=== PATIENT | male | born 1945 | race Caucasian/White ===

== ENCOUNTER 2018-03-21 12:11 | Emergency (ER) | payer OTHER ==
[~2018-03-21] VITALS: Ht 165.1 cm; Wt 85.8 kg
[~2018-03-21 12:11] MED LIST: COZ50 PO; DOXA8TAB PO; GLIM2TAB PO; METF1TAB PO; METF500T PO; OMEP40EC1 PO; SIMV40TA1 PO; [UNRECOGNIZED DRUG - CODE] PO
[2018-03-21 12:16] VITALS: BP 132/66
--- NOTE | 2018-03-21 12:21 | NUR ---
PT AMBULATES TO BED 3, REPORT GIVEN TO ANDREZ SIMON
--- NOTE | 2018-03-21 12:22 | NUR ---
73/M BIB SELF C/O PRODUCTIVE GREEN COUGH X 2 WKS WITH SORE THROAT, BL ITCHY EYES AND GENERALYZED WEAKNESS .DENIES N/V/D; SKIN IS PINK/WARM/DRY; AAOX4 WITH EVEN AND STEADY GAIT; LUNGS CLEAR BL. PT DENIES ANY FEVER OR CHEST PAIN AT THIS TIME; PATIENT STATES THROAT PAIN OF 8/10 AT THIS TIME. PATIENT POSITIONED FOR COMFORT; HOB ELEVATED; BEDRAILS UP X2; BED DOWN. ER MD MADE AWARE OF PT STATUS.
--- NOTE | 2018-03-21 12:29 | NUR ---
DR MUÑIZ EVALUATING AT BEDSIDE
--- NOTE | 2018-03-21 12:34 | NUR ---
PT TAKEN TO XRAY IN WHEELCHAIR
[2018-03-21 13:15] VITALS: BP 123/71
--- NOTE | 2018-03-21 13:15 | NUR ---
Patient discharged with v/s stable. Written and verbal after care instructions given and explained. Patient alert, oriented and verbalized understanding of instructions. Ambulatory with steady gait. All questions addressed prior to discharge. ID band removed. Patient advised to follow up with PMD. Rx of AZITHROMYCIN, PREDNISONE, SULFACETAMIDE & ALBUTEROL given. Patient educated on indication of medication including possible reaction and side effects. Opportunity to ask questions provided and answered.
== END 2018-03-21 13:15 | disposition home or self-care (01) ==
LOC: MED 12:11
DX: J40 Bronchitis, not specified as acute or chronic (principal); H10.9 Unspecified conjunctivitis; E11.9 Type 2 diabetes mellitus without complications; K21.9 Gastro-esophageal reflux disease without esophagitis; I10 Essential (primary) hypertension; Z79.899 Other long term (current) drug therapy
CPT/HCPCS: 71046; 99284

== ENCOUNTER 2021-12-04 10:51 | Emergency (ER) | payer OTHER ==
[~2021-12-04] VITALS: Ht 167.6 cm; Wt 77.1 kg
[~2021-12-04 10:51] MED LIST changes: -COZ50 PO; +LOSA50TA57 PO; -OMEP40EC1 PO; +OMEP40EC24 PO
[2021-12-04 10:55] VITALS: BP 118/61
--- NOTE | 2021-12-04 10:55 | NUR ---
76 Y/O MALE C/O URINARY PROBLEMS SINCE LAST WEEK. STATES BLOOD IN URINE. DENIES ANY PAIN MEDHX: DM, HEMORRHOIDS NKA
[2021-12-04] MEDS ORDERED: PHEN1SUP5 RC (12:05)
[2021-12-04 12:17] VITALS: BP 118/61
--- NOTE | 2021-12-04 12:17 | NUR ---
Patient discharged with v/s stable. Written and verbal after care instructions given and explained. Patient alert, oriented and verbalized understanding of instructions. Ambulatory with steady gait. All questions addressed prior to discharge. ID band removed. Patient advised to follow up with PMD. Rx of PREPARATION H SUPPOSITORY given. Patient educated on indication of medication including possible reaction and side effects. Opportunity to ask questions provided and answered.
== END 2021-12-04 12:17 | disposition home or self-care (01) ==
LOC: MED 10:51
DX: K64.8 Other hemorrhoids (principal); E11.9 Type 2 diabetes mellitus without complications; K21.9 Gastro-esophageal reflux disease without esophagitis; I10 Essential (primary) hypertension; Z79.899 Other long term (current) drug therapy
CPT/HCPCS: 81002; 99283

== ENCOUNTER 2022-10-15 20:43 | Inpatient (IN) | payer OTHER ==
[~2022-10-15] VITALS: Ht 163.8 cm; Wt 80.7 kg
[~2022-10-15 20:43] MED LIST changes: +METF-346 PO; -METF1TAB PO; -METF500T PO; -OMEP40EC24 PO; +PHEN1SUP5 RC
[2022-10-15 20:47] VITALS: BP 125/60
--- NOTE | 2022-10-15 20:52 | NUR ---
PT AMBULATED TO THE BATHROOM FOR URINE COLLECTION
--- NOTE | 2022-10-15 20:54 | NUR ---
PT TO LOBBY
[2022-10-15 21:21] LABS: APPEARANCE,URINE CLEAR (CLEAR); BILIRUBIN,URINE NEGATIVE (NEGATIVE); BLOOD, URINE NEGATIVE (NEGATIVE); COLOR,URINE YELLOW (YELLOW); LEUKOCYTE ESTERASE ,URINE NEGATIVE (NEGATIVE); NITRITE, URINE NEGATIVE (NEGATIVE); UGLUCOSE 3+ (NEGATIVE)
--- NOTE | 2022-10-15 21:53 | NUR ---
PT AMBULATED TO BED 1
--- NOTE | 2022-10-15 21:59 | NUR ---
PATIENT PRESENTS TO ED WITH GENERAL ABD PAIN X1 DAY. ABD ROUND, FIRM. PT STATES PAIN STARTED WITH MORNING, VOMITED X2 TODAY, LAST BM YESTERDAY MORNING. DENIES DIARRHEA. PT STATES HE WAS ADMITTED APPROX 3 MONTHS AGO FOR SIMILAR PAIN, STATES HE HAD "TWISTED INTESTINE". NO SURGICAL INTERVENTION DONE PER PT. SKIN IS PINK/WARM/DRY; AAOX4 WITH EVEN AND STEADY GAIT; LUNGS CLEAR BL; PT DENIES ANY FEVER, CP, SOB, OR COUGH AT THIS TIME; PATIENT STATES PAIN OF 7/10 AT THIS TIME; VSS; PATIENT POSITIONED FOR COMFORT; HOB ELEVATED; BEDRAILS UP X2; BED DOWN. ER MD MADE AWARE OF PT STATUS.
--- NOTE | 2022-10-15 22:07 | NUR ---
DR. CARRIZALES AT BEDSIDE FOR MSE HX Partial small bowel obstruction Umbilical hernia Diabetes mellitus 2 Hypertension GERD
[2022-10-15 22:15] LABS: BASOPHILS % (AUTO) 0.2 % (0.0-2.0); HEMATOCRIT 41.3 % (36-52); HEMOGLOBIN 13.3 g/dL (12.0-18.0); LYMPHOCYTES # (AUTO) 0.7 K/uL (2.0-11.5); LYMPHOCYTES % (AUTO) 6.1 % (20.5-51.1); MEAN CORPUSCULAR HEMOGLOBIN 28 pg (27-31); MEAN CORPUSCULAR HGB CONC 32 g/dL (33-37); MEAN CORPUSCULAR VOLUME 86.4 fL (80-94); MONOCYTES # (AUTO) 0.3 K/uL (0.8-1.0); MONOCYTES % (AUTO) 2.8 % (1.7-9.3); NEUTROPHILS # (AUTO) 10.8 K/uL (1.8-7.7); NEUTROPHILS % (AUTO) 90.9 % (42.2-75.2); PLATELET COUNT (AUTO) 258 K/uL (140-450); RED BLOOD CELL COUNT(AUTO) 4.78 MIL/uL (4.20-6.10); WHITE BLOOD COUNT (AUTO) 11.9 K/uL (4.8-10.8)
[2022-10-15] MEDS ORDERED: MORPHINE SULFATE 4 MG/ML SYR IVP ONE (22:15)
[2022-10-15] MEDS ORDERED: ONDANSETRON 4 MG/2 ML VIAL IVP ONE (22:15)
[2022-10-15] MEDS ORDERED: NACL 0.9% 1,000 ML IV ONE (22:20)
--- NOTE | 2022-10-15 22:36 | NUR ---
PT MEDICATED FOR PAIN
--- NOTE | 2022-10-15 22:43 | NUR ---
NOTIFIED DAUGHTER MARY [phone] OF ADMISSION STATUS
[2022-10-15 22:44] LABS: ALBUMIN 3.7 g/dL (3.4-5.0); ANION GAP 15.2 (8-16); ASPARTATE AMINOTRANSFERASE 13 U/L (15-37); CARBON DIOXIDE 26.9 mmol/L (21-32); CHLORIDE 103 mmol/L (98-107); CREATININE 0.7 mg/dL (0.6-1.3); GLUCOSE 203 mg/dL (74-106); LIPASE 45 U/L (73-393); POTASSIUM 5.1 mmol/L (3.5-5.1); SODIUM SERUM 140 mmol/L (136-145); TOTAL BILIRUBIN 0.5 mg/dL (0.0-1.0); UREA NITROGEN, BLOOD 21 mg/dL (7-18)
--- NOTE | 2022-10-15 22:57 | NUR ---
COVID SWAB DONE
--- NOTE | 2022-10-16 01:44 | NUR ---
REPORT GIVEN TO INJECTOR ASSEMBLER EJ
--- NOTE | 2022-10-16 02:31 | NUR ---
ROUNDED ON PT. PT STATES PAIN COMING BACK. NOTIFIED DR. HELTON
[2022-10-16] MEDS ORDERED: MORPHINE SULFATE 4 MG/ML SYR IVP ONE (02:35)
--- NOTE | 2022-10-16 02:45 | NUR ---
PT MEDICATED FOR PAIN PENDING BED ASSIGNMENT
--- NOTE | 2022-10-16 03:11 | NUR ---
EDUCATED PT ON NPO STATUS
--- NOTE | 2022-10-16 07:27 | NUR ---
Pt report given to GRICEL MAGUIRE. Transfer of care at this time.
--- NOTE | 2022-10-16 08:12 | NUR ---
Note elle in ED - 10/16/22 at 0822 by [id number] Patient will be admitted to care of DR. BUSTILLO. Admited to [facility]. Will go to [id number]. Belongings list completed. Report to ANDREZ Mabry.
[2022-10-16] MEDS: DEXT 5% /NACL 0.9% 1,000 ML IV SCH ×2 (08:50→16:50)
[2022-10-16] MEDS ORDERED: ONDANSETRON 4 MG/2 ML VIAL IM/IVP PRN (08:50)
[2022-10-16] MEDS ORDERED: guaiFENesin DM 200/20 MG-10 ML 10 ML UDC PO PRN (08:50)
[2022-10-16] MEDS ORDERED: DOCUSATE SODIUM 100 MG GELCAP PO PRN (08:50)
[2022-10-16] MEDS ORDERED: POTASSIUM CHLORIDE 10 MEQ TABER PO PRN (08:50)
[2022-10-16] MEDS ORDERED: ZOLPIDEM 5 MG TAB PO PRN (08:50)
[2022-10-16] MEDS ORDERED: HYDROcodone/APAP 7.5/325 MG 1 TAB PO PRN (08:50)
[2022-10-16] MEDS ORDERED: ACETAMINOPHEN 325 MG TAB PO PRN (08:50)
[2022-10-16] MEDS ORDERED: PANTOPRAZOLE 40 MG TABEC PO SCH (09:00)
[2022-10-16 09:05] VITALS: BP 142/65
--- NOTE | 2022-10-16 09:05 | NUR ---
PT TRANSPORTED BY ER NURSE VIA GURNEY. RECEIVED REPORT FROM ER NURSE MARIA M. PT A/A/O X4. RESPIRATIONS EVEN AND UNLABORED ON RA. NO DISTRESS NOTED. NO C/O OF PAIN. PT ATTACHED TO ELECTRICIAN POWERHOUSE. V/S TAKEN. MRSA SWAB TAKEN AND SENT TO LAB. PT ON NPO. INFORMED PT AND OBSERVATION NURSE. NPO SIGN PLACED AT THE PT'S DOOR. SKIN INTACT, WARM AND DRY TO TOUCH. IV SITE ON LAC 20G, IVF RESUMED. PT ORIENTED TO ROOM, UNIT AND ROUTINE. CALL LIGHT WITHIN REACH. SAFETY PRECAUTIONS IN PLACE.
--- NOTE | 2022-10-16 09:13 | NUR ---
PT CHECKED AND SEEN BY DR BUSTILLO.
[2022-10-16] MEDS ORDERED: PANTOPRAZOLE 40 MG INJ VIAL IVP SCH (10:09)
[2022-10-16 10:17] LABS: PROTHROMBIN TIME 10.7 secs (10.8-13.4)
[2022-10-16 10:19] LABS: AMYLASE 48 U/L (25-115); CHOL/HDL RATIO 2.3 (1-4.5); FREE T4 (FREE THYROXINE) 1.03 ng/dL (0.76-1.46); HDL CHOLESTEROL 59 mg/dL (40-60); LDL (CALC) 52 mg/dL (60-100); LIPASE 35 U/L (73-393); MAGNESIUM 1.7 mg/dL (1.8-2.4); PHOSPHORUS 3.6 mg/dL (2.5-4.9); THYROID STIMULATING HORMONE 1.67 uIU/mL (0.34-3.74); TRIGLYCERIDES 110 mg/dL (30-150)
[2022-10-16] MEDS ORDERED: INSULIN LISPRO SLIDING SCALE 100 UNITS/ML VIAL SUBQ PRN (10:35)
[2022-10-16] MEDS ORDERED: DEXTROSE 50% 50 ML SYR IVP PRN (10:35)
--- NOTE | 2022-10-16 10:38 | NUR ---
PATIENT HAS BEEN SCREENED AND CATEGORIZED MODERATE NUTRITION RISK. PATIENT WILL BE SEEN WITHIN 3-5 DAYS OF ADMISSION. REVIEWED BY KENYATTA PRIDE RD
[2022-10-16] MEDS ORDERED: MAG SULF 2000 MG/WATER PREMIX 50 ML IV SCH (10:51)
--- NOTE | 2022-10-16 11:00 | NUR ---
ADMINISTERED MAG RIDER FOR MAGNESIUM LEVEL OF 1.7. PT IN STABLE CONDITION
[2022-10-16 12:00] VITALS: BP 136/59
[2022-10-16] MEDS: BLOOD GLUCOSE MONITORING 1 DEV DEV FS SCH ×3 (12:00→20:32)
--- NOTE | 2022-10-16 12:02 | NUR ---
BLOOD SUGAR CHECK DONE. NO SLIDING SCALE INSULIN GIVEN FOR BS 137.
[2022-10-16] MEDS ORDERED: KETOROLAC 30 MG/ML VIAL IVP PRN (12:35)
[2022-10-16 16:00] VITALS: BP 133/61
--- NOTE | 2022-10-16 17:06 | NUR ---
BS CHECK 147. NO INSULIN COVERAGE PER SLIDING SCALE.
--- NOTE | 2022-10-16 19:25 | NUR ---
ENDORSED PT TO NURSE LOCKETT FOR CONTINUITY OF CARE. ALL NEEDS MET THROUGHOUT SHIFT. PT IS STABLE. Addendum: 10/16/22 at 1926 by Thong Marks LVN ENDORSED PT TO ANDREZ HARMAN. PT IS IN STABLE CONDITION.
[2022-10-16 20:00] VITALS: BP 131/61
[2022-10-17] VITALS: BP 138/64
[2022-10-17 04:00] VITALS: BP 130/62
[2022-10-17] MEDS: BLOOD GLUCOSE MONITORING 1 DEV DEV FS SCH ×4 (07:14→21:00)
--- NOTE | 2022-10-17 07:28 | NUR ---
RECEIVED PT FROM ANDREZ HARMAN FOR CONTINUITY OF CARE. PT AWAKE, IN BED. A&O4, ABLE TO MAKE NEEDS KNOWN. RESPIRATIONS EVEN AND UNLABORED ON RA. NO DISTRESS NOTED. NO COMPLAINTS OF PAIN. ON GED INSTRUCTOR. PER FIGURE CLERK ANDREZ GI CAME LAST NIGHT, RECOMMENDED HERNIA REPAIR OUTPATIENT AND CHANGED DIET TO CCHO 60G. CALL LIGHT WITHIN REACH. SAFETY PRECAUTIONS IN PLACE.
[2022-10-17 07:36] LABS: ANION GAP 15.1 (8-16); CARBON DIOXIDE 25.7 mmol/L (21-32); CHLORIDE 107 mmol/L (98-107); CREATININE 0.6 mg/dL (0.6-1.3); GLUCOSE 89 mg/dL (74-106); POTASSIUM 4.8 mmol/L (3.5-5.1); SODIUM SERUM 143 mmol/L (136-145); UREA NITROGEN, BLOOD 19 mg/dL (7-18)
[2022-10-17 07:38] LABS: BASOPHILS % (AUTO) 0.7 % (0.0-2.0); EOSINOPHILS # (AUTO) 0.1 K/uL (0-0.4); EOSINOPHILS % (AUTO) 2.1 % (0.0-4.0); HEMATOCRIT 36.4 % (36-52); HEMOGLOBIN 11.8 g/dL (12.0-18.0); LYMPHOCYTES # (AUTO) 1.3 K/uL (2.0-11.5); LYMPHOCYTES % (AUTO) 25.6 % (20.5-51.1); MEAN CORPUSCULAR HEMOGLOBIN 28 pg (27-31); MEAN CORPUSCULAR HGB CONC 33 g/dL (33-37); MEAN CORPUSCULAR VOLUME 85.8 fL (80-94); MONOCYTES # (AUTO) 0.4 K/uL (0.8-1.0); MONOCYTES % (AUTO) 7.4 % (1.7-9.3); NEUTROPHILS # (AUTO) 3.2 K/uL (1.8-7.7); NEUTROPHILS % (AUTO) 64.2 % (42.2-75.2); PLATELET COUNT (AUTO) 226 K/uL (140-450); RED BLOOD CELL COUNT(AUTO) 4.24 MIL/uL (4.20-6.10); RED CELL DISTRIBUTION WIDTH 14.9 % (11.6-13.7)
[2022-10-17 08:00] VITALS: BP 138/78
[2022-10-17 08:07] LABS: T4 (THYROXINE) 7.3 ug/dL (4.5-12.0)
[2022-10-17] MEDS: PANTOPRAZOLE 40 MG INJ VIAL IVP SCH (09:03)
--- NOTE | 2022-10-17 09:03 | NUR ---
SCHEDULED IV MEDS ADMINISTERED BY ANDREZ PRESCOTT. PT TOLERATED WELL.
--- NOTE | 2022-10-17 11:55 | NUR ---
BS CHECK 155. INSULIN GIVEN 2 UNITS PER SLIDING SCALE.
[2022-10-17 12:00] VITALS: BP 140/86
--- NOTE | 2022-10-17 16:45 | NUR ---
BS CHECKED 116. NO INSULIN NEEDED PER SLIDING SCALE.
--- NOTE | 2022-10-17 19:25 | NUR ---
GAVE BEDSIDE REPORT TO APPRENTICE LINEMAN THIRD STEP NURSE DAMIR FOR CONTINUITY OF CARE. ALL NEEDS MET THROUGHOUT SHIFT. PT IS IN STABLE CONDITION.
--- NOTE | 2022-10-17 19:30 | NUR ---
RECEIVED REPORT FROM AM NURSE FOR CONTINUITY OF CARE.PT IS STABLE
[2022-10-17 20:00] VITALS: BP 131/67
--- NOTE | 2022-10-18 | NUR ---
PATIENT ASLEEP, ALL SAFETY MEASURES IN PLACE,CALL LIGHT WITHIN EASY REACH.NO DISTRESS NOTED
[2022-10-18] MEDS: BLOOD GLUCOSE MONITORING 1 DEV DEV FS SCH ×2 (06:35→11:29)
[2022-10-18 07:16] LABS: BASOPHILS % (AUTO) 0.4 % (0.0-2.0); EOSINOPHILS # (AUTO) 0.1 K/uL (0-0.4); EOSINOPHILS % (AUTO) 1.8 % (0.0-4.0); HEMOGLOBIN 12.2 g/dL (12.0-18.0); LYMPHOCYTES # (AUTO) 1.2 K/uL (2.0-11.5); LYMPHOCYTES % (AUTO) 23.5 % (20.5-51.1); MEAN CORPUSCULAR HEMOGLOBIN 28 pg (27-31); MEAN CORPUSCULAR HGB CONC 33 g/dL (33-37); MEAN CORPUSCULAR VOLUME 85.5 fL (80-94); MONOCYTES # (AUTO) 0.4 K/uL (0.8-1.0); MONOCYTES % (AUTO) 7.7 % (1.7-9.3); NEUTROPHILS # (AUTO) 3.5 K/uL (1.8-7.7); NEUTROPHILS % (AUTO) 66.6 % (42.2-75.2); PLATELET COUNT (AUTO) 245 K/uL (140-450); RED BLOOD CELL COUNT(AUTO) 4.33 MIL/uL (4.20-6.10); RED CELL DISTRIBUTION WIDTH 14.5 % (11.6-13.7); WHITE BLOOD COUNT (AUTO) 5.3 K/uL (4.8-10.8)
[2022-10-18 07:56] LABS: ANION GAP 13.6 (8-16); CARBON DIOXIDE 25.5 mmol/L (21-32); CHLORIDE 101 mmol/L (98-107); CREATININE 0.6 mg/dL (0.6-1.3); GLUCOSE 104 mg/dL (74-106); POTASSIUM 4.1 mmol/L (3.5-5.1); SODIUM SERUM 136 mmol/L (136-145); UREA NITROGEN, BLOOD 15 mg/dL (7-18)
[2022-10-18 08:00] VITALS: BP 154/65
--- NOTE | 2022-10-18 08:00 | NUR ---
REPORT RECEIVED FROM NIGHTSHIFT NURSEDAMIR AND STATES DR. MURRY ORDER FOR NG TUBE PLACEMENT. SPOKE WITH DR. MURRY AT BEDSIDE AND DR. MURRY STATES IT WAS THE WRONG PT SO NO ORDER FOR NG TUBE PLACEMENT AND NO ORDER FOR NPO. PT A/O X3. ABLE TO MAKE NEEDS KNOWN. NO SOB OR RESPIRATORY DISTRESS. ON RA. NEEDS ALL MET AT THIS TIME. ALL SAFETY MEASURES IN PLACE.
[2022-10-18] MEDS: PANTOPRAZOLE 40 MG INJ VIAL IVP SCH (09:00)
[2022-10-18 13:33] VITALS: BP 154/65
--- NOTE | 2022-10-18 15:30 | NUR ---
DISCHARGE INSTRUCTIONS GIVEN. PT VERBALIZED UNDERSTANDING. IV DISCONTINUED, CATHETER INTACT, NO ACTIVE BLEEDING. PT AMBULATED OUT WITH HELICOPTER PILOT.
== END 2022-10-18 15:30 | disposition home or self-care (01) | DRG 389 ==
LOC: MED 20:43 → MTU 10-16 02:51 → OBSVTOIN 10-16 15:46
PROVIDERS: ADMIT Family Medicine; ATTEND Family Medicine
DX: K56.7 Ileus, unspecified (principal); R65.10 Systemic inflammatory response syndrome (SIRS) of non-infectious origin without acute organ dysfunction; K43.9 Ventral hernia without obstruction or gangrene; I10 Essential (primary) hypertension; E11.9 Type 2 diabetes mellitus without complications; E66.9 Obesity, unspecified; Z68.30 Body mass index [BMI] 30.0-30.9, adult; Z20.822 Contact with and (suspected) exposure to COVID-19
CPT/HCPCS: 36415; 71045; 74021; 74250; 80048; 80053; 81003; 82150; 82948; 83036; 83690; 83735; 83880; 84100; 84436; 84439; 84443; 84479; 84484; 85025; 85610; 85730; 86886; 86900; 86901; 87081; 93005; 96374; 96375; 96376; 99285; C9113; J1815; J1885; J2270; J2405; J3475; Q0092

== ENCOUNTER 2023-08-02 21:01 | Emergency (ER) | payer OTHER ==
[~2023-08-02] VITALS: Ht 162.6 cm; Wt 77.8 kg
[~2023-08-02 21:01] MED LIST changes: -GLIM2TAB PO; +GLIM2TAB96 PO; +SIMV-373 PO; -SIMV40TA1 PO
[2023-08-02 21:08] VITALS: BP 139/63; PULSE 89; RESP 16; TEMP 97; O2SAT 96
[2023-08-02 21:44] LABS: BASOPHILS # (AUTO) 0.1 K/uL (0.00-0.22); BASOPHILS % (AUTO) 0.8 % (0.0-2.0); EOSINOPHILS # (AUTO) 0.1 K/uL (0-0.4); EOSINOPHILS % (AUTO) 0.6 % (0.0-4.0); HEMATOCRIT 41.7 % (36-52); HEMOGLOBIN 13.6 g/dL (12.0-18.0); LYMPHOCYTES # (AUTO) 1.1 K/uL (2.0-11.5); LYMPHOCYTES % (AUTO) 9.6 % (20.5-51.1); MEAN CORPUSCULAR HEMOGLOBIN 28 pg (27-31); MEAN CORPUSCULAR HGB CONC 33 g/dL (33-37); MONOCYTES # (AUTO) 0.5 K/uL (0.8-1.0); MONOCYTES % (AUTO) 4.2 % (1.7-9.3); NEUTROPHILS # (AUTO) 10.1 K/uL (1.8-7.7); NEUTROPHILS % (AUTO) 84.8 % (42.2-75.2); PLATELET COUNT (AUTO) 224 K/uL (140-450); RED CELL DISTRIBUTION WIDTH 14.6 % (11.6-13.7); WHITE BLOOD COUNT (AUTO) 11.9 K/uL (4.8-10.8)
[2023-08-02 21:59] LABS: ALANINE AMINOTRANSFERASE 20 U/L (12-78); ALBUMIN 4.1 g/dL (3.4-5.0); ALKALINE PHOSPHATASE 84 U/L (50-136); ANION GAP 15.4 (8-16); ASPARTATE AMINOTRANSFERASE 11 U/L (15-37); CALCIUM 9.3 mg/dL (8.5-10.1); CARBON DIOXIDE 26.1 mmol/L (21-32); CHLORIDE 102 mmol/L (98-107); CREATININE 0.9 mg/dL (0.6-1.3); GLUCOSE 270 mg/dL (74-106); LIPASE 16 U/L (16-77); POTASSIUM 4.5 mmol/L (3.5-5.1); SODIUM SERUM 139 mmol/L (136-145); TOTAL BILIRUBIN 0.5 mg/dL (0.0-1.0); UREA NITROGEN, BLOOD 19 mg/dL (7-18)
[2023-08-02 23:14] VITALS: BP 139/63; PULSE 89; RESP 16; TEMP 97; O2SAT 96
== END 2023-08-02 22:46 | disposition home or self-care (01) ==
LOC: MED 21:01
DX: R10.9 Unspecified abdominal pain (principal); E11.9 Type 2 diabetes mellitus without complications; I10 Essential (primary) hypertension; Z79.4 Long term (current) use of insulin; Z79.899 Other long term (current) drug therapy
CPT/HCPCS: 36415; 71045; 80053; 83690; 84484; 85025; 93005; 99285